=== PATIENT | female | born 1980 | race Caucasian/White ===

== ENCOUNTER 2016-12-22 13:27 | Inpatient (IN) | payer OTHER ==
[~2016-12-22] VITALS: Ht 162.6 cm; Wt 51.3 kg
[2016-12-22 15:10] LABS: HEMOGLOBIN 12.7 gm/dl (12.3-15.3); RED BLOOD COUNT 4.13 M/UL (4.00-5.10); WHITE BLOOD COUNT 8.2 K/UL (4.5-11.0)
[2016-12-22 15:33] LABS: BUN/CREATININE RATIO 8 (0-10)
[2016-12-23 05:03] LABS: HEMOGLOBIN 11.7 gm/dl (12.3-15.3); RED BLOOD COUNT 3.79 M/UL (4.00-5.10); WHITE BLOOD COUNT 7.2 K/UL (4.5-11.0)
[2016-12-23 05:22] LABS: BUN/CREATININE RATIO 10 (0-10)
[2016-12-24 04:28] LABS: RED BLOOD COUNT 3.69 M/UL (4.00-5.10); WHITE BLOOD COUNT 6.5 K/UL (4.5-11.0)
[2016-12-24 04:52] LABS: BUN/CREATININE RATIO 8 (0-10)
[2016-12-24] MEDS ORDERED: LEVAQUIN TAB 2250 MG PO (21:21)
== END 2016-12-24 21:28 | disposition home or self-care (01) | DRG 690 ==
LOC: ER1 13:27 → MED SURG 4 18:44 → ZEROF 18:44 → MED SURG 4 21:40
PROVIDERS: Emergency Medicine; ADMIT Internal Medicine
DX: N10 Acute pyelonephritis (principal); Z86.14 Personal history of Methicillin resistant Staphylococcus aureus infection; F19.10 Other psychoactive substance abuse, uncomplicated; F17.210 Nicotine dependence, cigarettes, uncomplicated
CPT/HCPCS: 36415; 71020; 80048; 80053; 80307; 81001; 82150; 83605; 83690; 84703; 85025; 85027; 85610; 85730; 86618; 87040; 87086; 99285; J0696; J1956; J2405; J7030; J7050; Q9962